=== PATIENT | female | born 1980 | race Caucasian/White ===

== ENCOUNTER 2017-01-28 13:10 | Inpatient (IN) | payer BC ==
--- NOTE | 2017-01-28 15:21 | PCM.LDHP ---
L&D History of Present Illness - General Date of Service: 01/28/17 Admit Problem/Dx: Admission Diagnosis/Problem Admission Diagnosis/Problem Source of Information: Patient History Limitations: Reports: No Limitations - History of Present Illness Introduction:: Patient is a 36 y/o at 39 5/7 wks who presents with concerns of contractions. Started about 0500 this AM. Have worsened throughout the day. Last 30 minutes have become more uncomfortable. Otherwise doing well. 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 Para: 1 LMP (Approximate): - Past Surgical History Female Surgical History: Reports: Section, Other (See Below) ( Cystotomy repair) Social & Family History - Tobacco Use Smoking Status *Q: Never Smoker Second Hand Smoke Exposure: No - Alcohol Use Alcohol Use History: No - Recreational Drug Use Recreational Drug Use: No Drug Use in Last 12 Months: No H&P Review of Systems - Review of Systems: Review Of Systems: See Below General: Reports: No Symptoms Pulmonary: Reports: No Symptoms Cardiovascular: Reports: No Symptoms Gastrointestinal: Reports: Abdominal Pain Genitourinary: Reports: No Symptoms Musculoskeletal: Reports: No Symptoms Neurological: Reports: No Symptoms L&D Exam - Exam Exam: See Below - Vital Signs Weight: 87.997 kg - OB Specific Contraction Intensity: Mild to Moderate Movement: Active Heart Tones: Present Heart Tones per Min: 145 Heart Rate (FHR) Variability: Moderate (6-25 bmp) Presentation: Vertex - Hunt Score Hunt Score Cervix Position: Midposition Hunt Score Consistency: Soft Hunt Score Effacement: >80% Hunt Score Dilation: 3-4 cm Hunt Score Infant's Station: -2 Hunt Score Total: 9 - Exam General: Alert, Oriented, Cooperative Genitourinary: Normal external exam Extremities: Normal Inspection Skin: Warm, Dry, Intact - Patient Data Result Diagrams: 01/28/17 17:29 - Problem List (1) 39 weeks gestation of SNOMED Code(s): 82411185 ICD Code: Z3A.39 - 39 WEEKS GESTATION OF Status: Acute Current Visit: Yes (2) Desires (vaginal after ) trial SNOMED Code(s): 524536410, 366106815 ICD Code: O34.219 - MATERNAL CARE FOR UNSP TYPE SCAR FROM PREVIOUS DEL Status: Acute Current Visit: Yes Problem List Initiated/Reviewed/Updated: Yes Assessment/Plan Comment:: at 39 5/7 wks presents with concerns of contractions. Hx of for breech. Desires this . Will have patient stay on unit and re -check in another 2-3 hours. Will sign out to covering physician. Patient in agreement with plan. If stays she is GBS negative. Does not require antibiotics. Labs to be done.
[2017-01-28] MEDS ORDERED: Ondansetron 4 MG/2 ML SDV IVPUSH PRN (17:08)
[2017-01-28] MEDS ORDERED: Nalbuphine 20 MG/1 ML Amp IVPUSH PRN (17:08)
[2017-01-28] MEDS ORDERED: Sodium Chloride 0.9% 10 ML Syringe FLUSH PRN (17:08)
[2017-01-28] MEDS ORDERED: Oxytocin/Lactated Ringers 10 UNIT/1,000 ML BAG IV SCH ×2 (17:15)
[2017-01-28] MEDS ORDERED: Calcium Carbonate 500 MG Tab.Chew PO PRN (19:25)
[2017-01-28] MEDS: Lactated Ringers 1,000 ML IV SCH (20:22)
[2017-01-29] MEDS: Lactated Ringers 1,000 ML IV SCH ×4 (04:37→07:47)
[2017-01-29] MEDS ORDERED: diphenhydrAMINE 50 MG/ML SDV IVPUSH PRN (04:44)
[2017-01-29] MEDS ORDERED: fentaNYL 100 MCG/2 ML SDV EPIDUR PRN (04:44)
[2017-01-29] MEDS ORDERED: ePHEDrine 50 MG/ML SDV IVPUSH PRN (04:44)
[2017-01-29] MEDS ORDERED: Bupivacaine/fentaNYL/NS 100 ML Bag EPIDUR SCH (04:45)
--- NOTE | 2017-01-29 05:15 | PCM.PREANE ---
Preanesthetic Assessment - Anesthesia/Transfusion/Family Hx Anesthesia History: Prior Anesthesia Without Reaction Other Type of Anesthesia Reaction Comment: denies any problems with anesthesia, "has only had widom teeth extraction" Family History of Anesthesia Reaction: No Transfusion History: No Prior Transfusion(s) - Review of Systems General: No Symptoms, Night Sweats Cardiovascular: No Symptoms Gastrointestinal: No Symptoms Neurological: No Symptoms Other: Reports: Anxiety - Physical Assessment Pulse: 86 Respiratory Rate: 16 Blood Pressure: 115/77 Vital Signs: Last Vital Signs Temp 98.3 F 01/28/17 14:31 Pulse 86 01/28/17 15:39 Resp 16 01/28/17 14:31 BP 115/77 01/28/17 15:39 Pulse Ox Height: 5 ft 7 in Weight: 87.997 kg ASA Class: 2 Mental Status: Alert & Oriented x3 Airway Class: Mallampati = 1 Dentition: Reports: Normal Dentition Thyro-Mental Finger Breadths: 3 Mouth Opening Finger Breadths: 3 ROM/Head Extension: Full Lungs: Clear to Auscultation, Normal Respiratory Effort Cardiovascular: Regular Rate, Regular Rhythm - Lab Values: Laboratory Last Values WBC 13.93 K/mm3 (3.98-10.04) H 01/28/17 17:29 RBC 4.24 M/mm3 (3.98-5.22) 01/28/17 17:29 Hgb 12.7 gm/L (11.2-15.7) 01/28/17 17:29 Hct 37.6 % (34.1-44.9) 01/28/17 17:29 MCV 88.7 fl (79.4-94.8) 01/28/17 17:29 MCH 30.0 pg (25.6-32.2) 01/28/17 17:29 MCHC 33.8 g/dl (32.2-35.5) 01/28/17 17:29 RDW Std Deviation 46.1 fL (36.4-46.3) 01/28/17 17:29 Plt Count 231 K/mm3 (182-369) 01/28/17 17:29 MPV 9.6 fl (9.4-12.3) 01/28/17 17:29 Neut % (Auto) 81.0 % (34.0-71.1) H 01/28/17 17:29 Lymph % (Auto) 9.7 % (19.3-51.7) L 01/28/17 17:29 [place] % (Auto) 8.7 % (4.7-12.5) 01/28/17 17:29 Eos % (Auto) 0.2 (0.7-5.8) L 01/28/17 17:29 Baso % (Auto) 0.1 % (0.1-1.2) 01/28/17 17:29 Neut # (Auto) 11.28 K/mm3 (1.56-6.13) H 01/28/17 17:29 Lymph # (Auto) 1.35 K/mm3 (1.18-3.74) 01/28/17 17:29 [place] # (Auto) 1.21 K/mm3 (0.24-0.36) H 01/28/17 17:29 Eos # (Auto) 0.03 K/mm3 (0.04-0.36) L 01/28/17 17: Baso # (Auto) 0.02 K/mm3 (0.01-0.08) 01/28/17 17:29 Manual Slide Review Normal smear 01/28/17 17:29 Blood Type B POSITIVE 01/28/17 17:08 Gel Antibody Screen Negative 01/28/17 17:08 - Allergies Allergies/Adverse Reactions: Allergies Allergy/AdvReac Type Severity Reaction Status Date / Time No Known Allergies Allergy Verified 04/10/15 10:51 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 - Blood Blood Available: No - Acknowledgements Anesthesia Type Planned: Epidural Pt an Appropriate Candidate for the Planned Anesthesia: Yes Alternatives and Risks of Anesthesia Discussed w Pt/Guardian: Yes Pt/Guardian Understands and Agrees with Anesthesia Plan: Yes PreAnesthesia Questionnaire Cardiovascular History: Reports: None Respiratory History: Reports: None 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 Other OB/BYN History: prior CS Psychiatric History: Reports: Anxiety - Past Surgical History Female Surgical History: Reports: Section, Other (See Below) ( Cystotomy repair) - SUBSTANCE USE Smoking Status *Q: Never Smoker Tobacco Use Within Last Twelve Months: No Second Hand Smoke Exposure: No Days Per Week of Alcohol Use: 0 Recreational Drug Use History: No - HOME MEDS Home Medications: Home Meds Dextromethorphan/guaiFENesin [Mucinex DM ER 600-30 MG] 1 tab PO ASDIRECTED PRN 04/10/15 [History] Pnv No.122/Iron/Folic Acid [ Multi Tablet] 1 tab PO DAILY 04/10/15 [ History] - CURRENT (IN HOUSE) MEDS Current Meds: Current Medications Calcium Carbonate/Glycine (Tums) 500 mg PO Q2HR PRN PRN Reason: Indigestion Last Admin: 01/28/17 20:22 Dose: 500 mg Diphenhydramine HCl (Benadryl) 25 mg IVPUSH Q6H PRN PRN Reason: pruritis Ephedrine Sulfate (Ephedrine Sulfate) 5 mg IVPUSH ASDIRECTED PRN PRN Reason: Hypotension Fentanyl (Sublimaze) 100 mcg EPIDUR Q3H PRN PRN Reason: Pain Fentanyl/Bupivacaine HCl (Fentanyl/Bupivacaine/Ns 2 Mcg-0.125% 100 Ml) 100 ml EPIDUR ASDIRECTED ORION Lactated Ringer's (Ringers, Lactated) 1,000 mls @ 100 mls/hr IV ASDIRECTED ORION Last Admin: 01/29/17 04:37 Dose: 100 mls/hr Oxytocin/Lactated Ringer's (Pitocin In Lr 10 Units/1,000 Ml) 10 unit in 1,000 mls @ 12 mls/hr IV TITRATE ORION; 2 MUNITS/MIN PRN Reason: Protocol Last Titration: 01/29/17 03:30 Dose: 2 munits/min, 12 mls/hr Oxytocin/Lactated Ringer's (Pitocin In Lr 10 Units/1,000 Ml) 10 unit in 1,000 mls @ 500 mls/hr IV .CONTINUOUS ORION Nalbuphine HCl (Nubain) 10 mg IVPUSH Q2H PRN PRN Reason: Pain (moderate 4-6) Ondansetron HCl (Zofran) 4 mg IVPUSH Q4H PRN PRN Reason: Nausea/Vomiting Last Admin: 01/29/17 04:00 Dose: 4 mg Sodium Chloride (Saline Flush) 10 ml FLUSH ASDIRECTED PRN PRN Reason: Keep Vein Open
[2017-01-29] MEDS ORDERED: Witch Hazel Medicated Pads 100/Jar TOP PRN (11:15)
[2017-01-29] MEDS ORDERED: Acetaminophen 325 MG Tab PO PRN (11:15)
[2017-01-29] MEDS ORDERED: Benzocaine/Menthol 20%-0.5% Spray 56 GM Canister TOP PRN (11:15)
[2017-01-29] MEDS ORDERED: Lanolin 100% Cream 7 GM Tube TOP PRN (11:15)
--- NOTE | 2017-01-29 11:16 | PCM.SN ---
- Free Text/Narrative Note: Harika is a 36-year-old 2 now para 2002 white female who was admitted on 01/28/2017-late afternoon in early labor. Patient had a previous section done for breech presentation in [place] with her last baby. She desired to do a vaginal after section after a trial of labor after section. She was open to epidural for analgesia. She progressed slowly throughout the night, was augmented with Pitocin which was advanced very slowly. She achieved complete cervical dilation by approximately 0800 hrs. on . Naproxen O5 100 hours she had an epidural placed for laboring analgesia. She then proceeded to labor down and began pushing. At 1037 hrs. on the patient delivered a viable, shah, female infant weighing 4170 g (9 pounds 3.1 ounces, with Apgars of 7 and 9, a length of 21.5 inches in a right occiput posterior position. She had a second degree laceration. Baby's nose and mouth were bulb suctioned. Baby was placed on mom's abdomen and the umbilical cord was allowed to stop pulsing. His and clamped 2, cut by the baby' s father. The cord blood was then obtained. The placenta delivered at 1051 hrs in a Roberts presentation. It appeared intact and complete. The umbilical cord had 3 vessels. Patient had a second-degree laceration which was repaired in routine fashion using 3-0 Monocryl. Epidural was used for anesthetic. Patient tolerated this very well. Patient then nursed the baby. It should be noted that Pitocin was started after delivery the baby to facilitate increasing uterine tone and to decrease bleeding. Ice was applied to the patient's perineum. Epidural catheter was removed from her back. Blood loss was 100 mL. Condition: Good
[2017-01-29] MEDS: Ibuprofen 600 MG Tab PO PRN ×2 (15:33→19:40)
[2017-01-30] MEDS: Ibuprofen 600 MG Tab PO PRN ×2 (00:24→04:33)
[2017-01-30 04:35] VITALS: BP 103/66
[2017-01-30] MEDS ORDERED: Docusate Sodium 100 MG Cap PO PRN (04:39)
--- NOTE | 2017-01-30 07:44 | PCM.DCSUM1 ---
Discharge Summary - Hospital Course Free Text/Narrative:: Harika is a 36-year-old 2 now para 2002 white female who was admitted on 01/28/2017-late afternoon in early labor. Patient had a previous section done for breech presentation in [place] with her last baby. She desired to do a vaginal after section after a trial of labor after section. She was open to epidural for analgesia. She progressed slowly throughout the night, was augmented with Pitocin which was advanced very slowly. She achieved complete cervical dilation by approximately 0800 hrs. on . Naproxen O5 100 hours she had an epidural placed for laboring analgesia. She then proceeded to labor down and began pushing. At 1037 hrs. on the patient delivered a viable, shah, female weighing 4170 g (9 pounds 3.1 ounces, with Apgars of 7 and 9, a length of 21.5 inches in a right occiput posterior position. She had a second degree laceration. Baby's nose and mouth were bulb suctioned. Baby was placed on mom's abdomen and the umbilical cord was allowed to stop pulsing. His and clamped 2, cut by the baby' s father. The cord blood was then obtained. The placenta delivered at 1051 hrs in a Roberts presentation. It appeared intact and complete. The umbilical cord had 3 vessels. Patient had a second-degree laceration which was repaired in routine fashion using 3-0 Monocryl. Epidural was used for anesthetic. Patient tolerated this very well. Patient then nursed the baby. It should be noted that Pitocin was started after delivery the baby to facilitate increasing uterine tone and to decrease bleeding. Ice was applied to the patient's perineum. Epidural catheter was removed from her back. Blood loss was 100 mL. patient was done well. She is nursing well, voiding without problems and is ambulating without concern. She is desiring discharge on the first day. - Discharge Data Discharge Date: 01/30/17 Discharge Disposition: Home, Self-Care 01 Condition: Good - Patient Instructions Diet: Regular Diet as Tolerated (Nursing diet with increase calories and calcium as directed) Activity: As Tolerated (No intercourse or tampons until bleeding resolves) Driving: Do Not Drive (2 days and then may drive without concern) Showering/Bathing: May Shower (May take a bath) - Discharge Plan Home Medications: Home Meds Dextromethorphan/guaiFENesin [Mucinex DM ER 600-30 MG] 1 tab PO ASDIRECTED PRN 04/10/15 [History] Pnv No.122/Iron/Folic Acid [ Multi Tablet] 1 tab PO DAILY 04/10/15 [ History] Ibuprofen [IJD: Ibuprofen] 600 mg PO Q4H PRN #30 tablet 01/30/17 [Rx] Referrals: Albina Robbins MD [Physician] - (Return to clinic-Dr. Robbins-2 weeks.) - Discharge Summary/Plan Comment Discharge Summary/Plan Comment: Discharge instructions: 1. Discharge home. 2. Regular, high fiber, nursing diet 3. Routine precautions given concern increased pain, bleeding, temperature, signs/symptoms of DVT/PE 4. Follow-up and activity discussed in detail 5. Medications per home medication was printed, discussed with them given to the patient 6. Return to clinic-Dr. Robbins-2 weeks. Diagnosis: 1. 39-6/7 week intrauterine -delivered 2. History of previous section with successful Condition: Good - Patient Data Vitals - Most Recent: Last Vital Signs Temp 36.4 C 01/30/17 04:32 Pulse 81 01/30/17 04:32 Resp 13 01/30/17 04:32 BP 103/66 01/30/17 04:32 Pulse Ox 98 01/30/17 04:32 Weight - Most Recent: 87.997 kg I&O - Last 24 hours: Intake & Output 01/29/17 01/30/17 01/30/17 22:59 06:59 14:59 Intake Total 120 Balance 120 Lab Results - Last 24 hrs: Laboratory Results - last 24 hr 01/30/17 Range/Units 07:01 WBC 13.98 H (3.98-10.04) K/mm3 RBC 3.28 L (3.98-5.22) M/mm3 Hgb 9.8 L (11.2-15.7) gm/L Hct 29.9 L (34.1-44.9) % MCV 91.2 (79.4-94.8) fl MCH 29.9 (25.6-32.2) pg MCHC 32.8 (32.2-35.5) g/dl RDW Std Deviation 46.3 (36.4-46.3) fL Plt Count 197 (182-369) K/mm3 MPV 9.6 (9.4-12.3) fl Med Orders - Current: Current Medications Acetaminophen (Tylenol) 650 mg PO Q4H PRN PRN Reason: mild pain or fever Benzocaine/Menthol (Dermoplast Pain Relief [place]) 0 gm TOP ASDIRECTED PRN PRN Reason: Perineal Comfort Measure Last Admin: 01/29/17 13:00 Dose: 1 spray Docusate Sodium (Colace) 100 mg PO BID PRN PRN Reason: Constipation Last Admin: 01/30/17 06:34 Dose: 100 mg Emollient Ointment (Lansinoh Hpa) 0 gm TOP ASDIRECTED PRN PRN Reason: Sore Nipples Ibuprofen (Motrin) 600 mg PO Q4H PRN PRN Reason: Mild pain or fever Last Admin: 01/30/17 04:33 Dose: 600 mg Prenat Multivit/Senior Research Fellow/Iron/Folic Ac ( Plus Iron) 1 each PO DAILY [facility] Pipe Estrada (Tucks) 1 pad TOP ASDIRECTED PRN PRN Reason: Hemorrhoid pain Last Admin: 01/29/17 13:00 Dose: 1 pad Discontinued Medications Calcium Carbonate/Glycine (Tums) 500 mg PO Q2HR PRN PRN Reason: Indigestion Last Admin: 01/28/17 20:22 Dose: 500 mg Diphenhydramine HCl (Benadryl) 25 mg IVPUSH Q6H PRN PRN Reason: pruritis Ephedrine Sulfate (Ephedrine Sulfate) 5 mg IVPUSH ASDIRECTED PRN PRN Reason: Hypotension Fentanyl (Sublimaze) 100 mcg EPIDUR Q3H PRN PRN Reason: Pain Last Admin: 01/29/17 05:17 Dose: 100 mcg Fentanyl/Bupivacaine HCl (Fentanyl/Bupivacaine/Ns 2 Mcg-0.125% 100 Ml) 100 ml EPIDUR ASDIRECTED [facility] Last Admin: 01/29/17 05:17 Dose: 100 ml Lactated Ringer's (Ringers, Lactated) 1,000 mls @ 100 mls/hr IV ASDIRECTED [facility] Last Admin: 01/29/17 07:47 Dose: 100 mls/hr Oxytocin/Lactated Ringer's (Pitocin In Lr 10 Units/1,000 Ml) 10 unit in 1,000 mls @ 12 mls/hr IV TITRATE ORION; 2 MUNITS/MIN PRN Reason: Protocol Last Titration: 01/29/17 07:49 Dose: 7 munits/min, 42 mls/hr Oxytocin/Lactated Ringer's (Pitocin In Lr 10 Units/1,000 Ml) 10 unit in 1,000 mls @ 500 mls/hr IV .CONTINUOUS ORION Nalbuphine HCl (Nubain) 10 mg IVPUSH Q2H PRN PRN Reason: Pain (moderate 4-6) Ondansetron HCl (Zofran) 4 mg IVPUSH Q4H PRN PRN Reason: Nausea/Vomiting Last Admin: 01/29/17 04:00 Dose: 4 mg Sodium Chloride (Saline Flush) 10 ml FLUSH ASDIRECTED PRN PRN Reason: Keep Vein Open *Q Meaningful Use (DIS) - VTE *Q VTE Criteria *Q: - Stroke *Q Stroke Criteria *Q: - AMI *Q AMI Criteria *Q:
--- NOTE | 2017-01-30 08:38 | PCM48HPAN ---
Post Anesthesia Note - EVALUATION WITHIN 48HRS OF ANESTHETIC Vital Signs in Normal Range: Yes Patient Participated in Evaluation: Yes Respiratory Function Stable: Yes Airway Patent: Yes Cardiovascular Function Stable: Yes Hydration Status Stable: Yes Pain Control Satisfactory: Yes Nausea and Vomiting Control Satisfactory: Yes Mental Status Recovered: Yes
[2017-01-30] MEDS ORDERED: Prenatal Multivitamin with Calcium/Folic Acid/Iron Tab PO SCH (09:00)
--- NOTE | 2017-01-31 07:50 | HP ---
DATE OF ADMISSION: 01/29/2017 UPDATE NOTE ADMISSION DIAGNOSES: Term , history of previous section with desire for repeat section and active labor. Please see Dr. Robbins's admission history and physical. HISTORY OF PRESENT ILLNESS: The patient was monitored in Labor and Delivery for approximately 4 hours during which time she changed her cervix to approximately 3+ cm from 2 to 3 cm. Baby's head descended to -2 station, effacement 90%. She had a bulging bag of paz. Contractions occurring every 3 minutes. They are moderate to strong and progressive in nature. The patient had previous history of section for breech presentation. She did not have a trial of labor with that . She desires . The procedure, risks, benefits, precautions recommended if attempting a trial labor after section to achieve a vaginal after are all discussed with the patient and her . They appeared to understand, wishes to proceed and would like to labor. They are undecided about pain control Labor and Delivery. They would like to do the labor naturally if possible, but are accepting of epidural if necessary. ASSESSMENT: 1. Term intrauterine , active labor, history of previous section with desire for . 2. Risk factors for the include distance from the hospital - the patient lives in [place], history of previous section. PLAN: 1. We will allow for trial of labor after to achieve a vaginal after . Risks, benefits, etc. discussed with the patient. Consent is signed for and for section. 2. We will obtain section laboratory tests. 3. The patient had an IV in place. 4. Anesthesia and surgery have been updated with the patient's presence in Labor and Delivery. 5. We will monitor heart tones and contractions near continuously during course of labor. 6. Pain control per the patient's desire. MMODAL /[id number]
== END 2017-01-30 12:10 | disposition home or self-care (01) | DRG 560 ==
LOC: JD.OBCHECK 13:10 → JD.OB 13:13 → JD.OBCHECK 17:08 → JD.OB 17:09 → OBSVTOIN 01-29 10:37 → JD.OB 01-29 10:37
PROVIDERS: ADMIT Obstetrics & Gynecology; ATTEND Obstetrics & Gynecology
PROC: 10E0XZZ Delivery of Products of Conception, External Approach (ICD-10-PCS; principal; 2017-01-29)
PROC: 10907ZC Drainage of Amniotic Fluid, Therapeutic from Products of Conception, Via Natural or Artificial Opening (ICD-10-PCS; 2017-01-29)
PROC: 0KQM0ZZ Repair Perineum Muscle, Open Approach (ICD-10-PCS; 2017-01-29)
PROC: 00HU33Z Insertion of Infusion Device into Spinal Canal, Percutaneous Approach (ICD-10-PCS; 2017-01-29)
PROC: 3E0R3CZ (ICD-10-PCS; 2017-01-29)
DX: O34.211 Maternal care for low transverse scar from previous cesarean delivery (principal); N85.8 Other specified noninflammatory disorders of uterus; O70.1 Second degree perineal laceration during delivery; Z3A.40 40 weeks gestation of pregnancy; Z37.0 Single live birth
CPT/HCPCS: 01967; 36415; 51702; 59409; 85025; 85027; 86850; 86900; 86901; A9270-GY; J2405; J2590; J3010; J7120